=== PATIENT | male | born 1995 | race Caucasian/White ===

== ENCOUNTER 2022-12-20 18:18 | Emergency (ER) | payer OTHER, SELFPAY ==
[2022-12-20 18:26] VITALS: BP 140/81; PULSE 101; RESP 20; TEMP 37.1; O2SAT 97
[2022-12-20 18:44] VITALS: BP 140/81; PULSE 101; RESP 20; TEMP 37.1; O2SAT 97
--- NOTE | 2022-12-20 18:46 | ED.EAR ---
HPI - Ear Problem General Chief complaint: Ear Stated complaint: left ear Source: patient Mode of arrival: ambulatory Limitations: no limitations History of Present Illness HPI Narrative: 27 y/o male presented for c/o bilateral ear pressure over the past week, and started with left ear pressure today. Endorses occasional tinnitus. Denies sinus congestion, ear drainage, nausea, vomiting, diarrhea, fevers or chills. Not taking anything for symptoms. MD Complaint: ear pain Related Data Home Medications Medication Instructions Recorded Confirmed No Home Medications 12/20/22 12/20/22 Allergies Allergy/AdvReac Type Severity Reaction Status Date / Time No Known Allergies Allergy Verified 12/20/22 18:32 Review of Systems Review of Systems: CONSTITUTIONAL: Denies malaise, chills, or fever. EYES: Denies visual changes, redness, or discharge. ENT: Denies rhinorrhea, congestion, sinus pain, and sore throat. Reports ear pain CARDIOVASCULAR: Denies chest pain, palpitations, or edema. RESPIRATORY: Denies cough or dyspnea. GASTROINTESTINAL: Denies abdominal pain, nausea, vomiting, diarrhea SKIN: Denies rash or itching. MUSCULOSKELETAL: Denies myalgia. reports chronic neck pain NEUROLOGIC: Reports headache. All systems reviewed & are unremarkable except as noted in HPI and below [facility] Past Medical History Medical History (Updated 12/20/22 @ 18:54 by Rebecca Julio APRN) No pertinent past medical history Comments At time of signature, agree with nursing past medical, surgical, social and family history. There is no relevant family history pertinent to the presenting complaint Exam Narrative: GENERAL: Well-appearing EYES: PERRLA, conjunctivae clear ENT: Nares clear. Mucous membranes moist. TMs pearly mason with dull light reflex and clear effusion bilaterally; no tragal tenderness. Oropharynx not erythematous Tonsils not enlarged and without exudate, no drooling, no hoarseness, no trismus, uvula midline. NECK: Supple. No lymphadenopathy CHEST: Clear to auscultation, breath sounds equal. No wheezing, rhonchi, rales, or stridor. No respiratory distress, speaks in full sentences. HEART: Regular rate and rhythm. No murmur heard. SKIN: Warm, dry, no rash. NEURO: Alert and oriented x3. PSYCH: Normal mood and affect Course Course Emergency Course: Patient is aware of diagnosis, understands and agrees to treatment plan. Anticipatory guidance given. Patient agrees to follow-up as directed and is aware of reasons to seek care at the emergency department. Portions of this record may have been created with voice recognition software Level of Care: Express Care Visit Vital Signs Vital signs: Vital Signs Temperature 98.7 F 12/20/22 18:26 Pulse Rate 101 H 12/20/22 18:26 Respiratory Rate 20 12/20/22 18:26 Blood Pressure 140/81 12/20/22 18:26 Pulse Oximetry 97 12/20/22 18:26 Oxygen Delivery Room Air 12/20/22 18:26 Temperature 98.7 F 12/20/22 18:44 Pulse Rate 101 H 12/20/22 18:44 Respiratory Rate 20 12/20/22 18:44 Blood Pressure 140/81 12/20/22 18:44 Pulse Oximetry 97 12/20/22 18:44 Oxygen Delivery Room Air 12/20/22 18:44 Reviewed Medical Decision Making MDM Narrative Medical decision making narrative: discussed physical exam findings consistent with serous otitis media.Advised supportive measures and signs/symptoms to go to the ER. Patient is appropriate for outpatient treatment and follow-up. Differential Diagnosis Differential Diagnosis: Coronavirus, strep pharyngitis, allergic rhinitis, upper respiratory tract infection, sinusitis, rhinosinusitis, nasopharyngitis, viral pharyngitis, otitis media, otitis externa, eustachian tube dysfunction, foreign body, cerumen impaction. Vital Signs Vital Signs: Vital Signs Temperature 98.7 F 12/20/22 18:26 Pulse Rate 101 H 12/20/22 18:26 Respiratory Rate 20 12/20/22 18:26 Blood Pressure 140/81 12/20/22 1
== END 2022-12-20 18:55 | disposition home or self-care (01) ==
PROVIDERS: Emergency Provider Nurse Practitioner Family; PCP Internal Medicine Geriatric Medicine
DX: H65.03 Acute serous otitis media, bilateral (principal)
CPT/HCPCS: 99202; G0463